=== PATIENT | male | born 1960 | race Caucasian/White ===

== ENCOUNTER 2023-09-02 14:10 | Emergency (ER) | payer MEDICARE, SELFPAY ==
[2023-09-02 14:14] VITALS: BP 182/86; PULSE 87; RESP 14; TEMP 36.6; O2SAT 96; BMI 29.8
--- NOTE | 2023-09-02 14:22 | PC.NURSE ---
tick to left upper chest, area to skin surrounding this is red
--- NOTE | 2023-09-02 14:38 | ED.SKABFB1 ---
HPI - Skin/Abscess/Foreign Bdy General Chief complaint: Skin/Abscess/Foreign Body Stated complaint: NECK PAIN L SIDE Time Seen by Provider: 09/02/23 14:19 Source: patient and family Mode of arrival: walk-in History of Present Illness HPI narrative: Patient is here with his with a tick to his left clavicular area. [place] a lot of time in [place] and outdoors needs removed multiple ticks over the years. 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 He did not try that today. He said he know he had the tick since yesterday and not before then because he checks himself with great regularity. Otherwise he feels fine. He is on blood thinners. He has no other symptoms. He admits that the area is already swollen up a little bit. He is not having any other allergic type symptomatology. Related Data Allergies Allergy/AdvReac Type Severity Reaction Status Date / Time No Known Drug Allergies Allergy Verified 09/02/23 14:19 Exam Narrative Exam Narrative: Awake alert vital signs are stable no apparent distress blood pressure slightly elevated he is here with his . Examining him indeed he has a tick just underneath the right clavicle area protruding into the skin. The tick is not in his normal body habitus with his head buried in his body exposed rather his whole head and for end of the tick is buried into the skin. Half of the rear part of his body and rear legs can be seen. The patient requested that I try to use heat source to remove the tick so we did use that but it was unsuccessful. We then went ahead and gently grasped the tick and with inline traction we were able to remove the tick. However it look like his front legs remains. So I did inject the area with lidocaine and made a 3 mm incision. There was no further bleeding and wanted the front legs other stick was removed and sure enough deeper leg was removed as well convinced that after irrigation and cleansing this wound with Betadine that he does not have any residual insect parts. Constitutional Vital Signs, click to edit/add: Last Vital Signs Temp 97.8 F 09/02/23 14:14 Pulse 87 09/02/23 14:14 Resp 14 09/02/23 14:14 BP 182/86 H 09/02/23 14:14 Pulse Ox 96 09/02/23 14:14 O2 Del Method Room Air 09/02/23 14:14 Course Vital Signs Vital signs: Vital Signs Temperature 97.8 F 09/02/23 14:14 Pulse Rate 87 09/02/23 14:14 Respiratory Rate 14 09/02/23 14:14 Blood Pressure 182/86 H 09/02/23 14:14 Pulse Oximetry 96 09/02/23 14:14 Oxygen Delivery Method Room Air 09/02/23 14:14 Temperature 97.8 F 09/02/23 14:14 Pulse Rate 87 09/02/23 14:14 Respiratory Rate 14 09/02/23 14:14 Blood Pressure 182/86 H 09/02/23 14:14 Pulse Oximetry 96 09/02/23 14:14 Oxygen Delivery Method Room Air 09/02/23 14:14 MDM - Skin/Abscess/Foreign Bdy MDM Narrative Medical decision making narrative: Patient comes to us with a tick that is not engorged and has been there less than a day. It was removed with some difficulty that is quite unusual but it was due to the body habitus and the position it bit this gentleman. Discharge Plan Discharge Chief Complaint: Skin/Abscess/Foreign Body Clinical Impression: Tick bite with subsequent removal of tick Patient Disposition: Home, Self-Care Time of Disposition Decision: 14:42 Additional Instructions: Topical antibiotic over the area. Referrals: Physician,Non-Staff, MD [Primary Care Provider] - 1 week Stand Alone Forms: Portal Instructions
[2023-09-02] MEDS: ADACEL DIPH,PERTUSS(ACELL),TET VAC/PF 0.5 ML ADULT SYRINGE IM (15:05)
== END 2023-09-02 14:54 | disposition still patient (30) ==
PROVIDERS: Emergency Provider Emergency Medicine Emergency Medical Services
DX: S20.362A Insect bite (nonvenomous) of left front wall of thorax, initial encounter (principal); W57.XXXA Bitten or stung by nonvenomous insect and other nonvenomous arthropods, initial encounter; Z23 Encounter for immunization
CPT/HCPCS: 10120; 90471; 90715; 99283

== ENCOUNTER 2023-12-03 15:42 | Outpatient (OUT) | payer MEDICARE, SELFPAY | END 2023-12-03 15:43 | disposition home or self-care (01) | LOC: WC 15:42 | PROVIDERS: Visit Provider Podiatrist Foot & Ankle Surgery | DX: L98.9 Disorder of the skin and subcutaneous tissue, unspecified (principal) | CPT/HCPCS: G0463 ==